=== PATIENT | female | born 1930 | race Caucasian/White ===

== ENCOUNTER 2019-03-22 17:44 | Inpatient (IN) | payer MEDICARE ==
--- NOTE | 2019-03-22 19:21 | RAD ---
RADIOGRAPH CHEST 1 VIEW: DATE: 03/22/2019 TIME: 7:13 PM HISTORY: 88-year-old female cough COMPARISON: 06/10/2016 FINDINGS: New finding of small subtle faint patchy density overlying right upper lobe. Rest of lungs are clear. Spinal cord stimulator at T-spine. No pneumothorax or pulmonary edema. IMPRESSION: Questionable small focal right upper lobe infiltrate versus artifact. Follow-up recommended.
[2019-03-22 19:34] LABS: #Eosinphils 0.1 thou/uL (0.0-0.7); #Lymphocytes 1.1 thou/uL (1.20-3.40); #Monocytes 0.6 thou/uL (0.11-0.59); %Basophils 0.2 % (0.0-1.0); %Eosinophils 0.7 % (0.0-10.0); %Lymphocytes 12.4 % (21.0-51.0); %Monocytes 6.6 % (0.0-10.0); %Neutrophils 80.2 % (42.0-75.0); Hemoglobin 11.6 g/dL (12.0-16.0); Mean Corpuscular HGB CONC 33.6 g/dL (32.0-36.0); Mean Corpuscular Hemoglobin 33.2 pg (27.0-31.0); Mean Corpuscular Volume 98.9 fL (78.0-98.0); Mean Platelet Volume 8.4 fL (7.4-10.4); Platelet Count 183 thou/uL (130-400); RBC Distribution Width 11.2 % (11.5-14.5); Red Blood Cell (RBC) Count 3.48 mill/uL (4.20-5.40); White Blood Cell (WBC) Count 8.8 thou/uL (4.8-10.8)
[2019-03-22] MEDS ORDERED: cefTRIAXone\\ROCEPHIN 2 GM VIAL ONE (19:46)
[2019-03-22 19:54] LABS: ALT (SGPT) 11 U/L (8-55); AST (SGOT) 24 U/L (5-34); Albumin 3.9 g/dL (3.4-4.8); Alkaline Phosphatase 54 U/L (40-110); Anion Gap 13 mmol/L (10-20); BUN (Urea Nitrogen) 34 mg/dL (9.8-20.1); Bilirubin, Total 0.3 mg/dL (0.2-1.2); Calc. Creatinine Clearance 0 mL/min (70-130); Calcium 8.7 mg/dL (7.8-10.44); Carbon Dioxide 27 mmol/L (23-31); Chloride 95 mmol/L (98-107); Estimated GFR-MDRD 35; Globulin 3.4 g/dL (2.4-3.5); Glucose 110 mg/dL (83-110); Potassium 4.7 mmol/L (3.5-5.1); Protein, Total 7.3 g/dL (6.0-8.3); Sodium 130 mmol/L (136-145)
[2019-03-22] MEDS ORDERED: Acetaminophen 325 MG TAB PO PRN (20:22)
[2019-03-22] MEDS ORDERED: Azithromycin 500 MG VIAL ONE (20:23)
[2019-03-22] MEDS ORDERED: traZODone HCl 50 MG TAB PO PRN (20:50)
--- NOTE | 2019-03-22 20:50 | PDOC.EVN ---
Event Note - Event Note Event Note: [id number] HP
[2019-03-22 21:55] LABS: Actual Bicarbonate (HCO3a) 28.4 mEq/L (22-28); Base Excess (BEa) 2.6 mEq/L (-2.0 to +3.0); CO2 Tension 49.4 mmHg (35.0-45.0); Calcium, Ionized 1.12 mmol/L (1.12-1.30); Carboxyhemoglobin (COHb) 0.7 gm% (0.0-3.0); Hemoglobin (Hb) 10.1 g/dL (12.0-16.0); O2 Tension (PaO2) 255.1 mmHg (> 60.0); Potassium - ABG Lab 3.98 mmol/L (3.70-5.30); pH, Arterial 7.38 (7.35-7.45)
[2019-03-22 21:56] LABS: Puncture Site RRADIAL
[2019-03-22 23:56] VITALS: BMI 27.3
[2019-03-23] MEDS: Gabapentin 300 MG CAP PO SCH ×2 (00:45→08:42)
[2019-03-23] MEDS: Heparin 5,000 UNITS/ML VIAL SC SCH ×3 (00:45→20:26)
[2019-03-23] MEDS: Sodium Chloride 0.9% 1,000 ML IV SCH ×2 (00:58→20:23)
--- NOTE | 2019-03-23 01:13 | HP ---
CHIEF COMPLAINT: Fever, chills, and low oxygen saturation. HISTORY OF PRESENT ILLNESS: Ms. Harris is an 88-year-old female with past medical history of hypertension, chronic pain, hyperlipidemia, among others, presents to the emergency room with cough, congestion, fever, body aches, and chills since Thursday. The patient was seen at Urgent Care earlier today. Oxygen saturation was 88% on room air. The patient also was found to have fever with a temperature of 101. The patient was given Tylenol and oxygen. Workup in the emergency room, patient was found to have ? possible right upper lobe opacity/pneumonia? Septic workup done in the ED. The patient is on IV antibiotics, ceftriaxone, and azithromycin. The patient is being admitted to hospital for further management. PAST MEDICAL HISTORY: 1. Hypertension. 2. Hyperlipidemia. 3. Chronic pain. FAMILY HISTORY: Reviewed and noncontributory. HOME MEDICATIONS: Please see home medication reconciliation form for updated medications. ALLERGIES: ALLERGIC TO CHLORPROMAZINE, DILANTIN, THORAZINE, TRAMADOL. PAST SURGICAL HISTORY: 1. Laminectomy. 2. Total knee replacement. 3. Eyelid plastic surgery. 4. Sinus surgery. 5. Cataract surgery. 6. Left knee replacement. 7. Hysterectomy. 8. Pain stimulator implants in the right lower leg. REVIEW OF SYSTEMS: Review of 14 systems negative except what is mentioned in history of present illness. PHYSICAL EXAMINATION: GENERAL: The patient is awake, alert, in mild respiratory distress. VITAL SIGNS: Blood pressure 159/84, pulse is 112, respiratory rate is 17, temperature is 98.8 and earlier it was 101. HEAD AND NECK: Normocephalic, atraumatic. NECK: Supple. CHEST: Bilateral expiratory wheeze, more on the right side. ABDOMEN: Soft, nontender. Bowel sounds present. NEUROLOGIC: Awake, alert, and oriented x3. PSYCHIATRIC: Normal mood. HEART: S1, S2. Regular, tachycardic. MUSCULOSKELETAL: Low back tenderness. GENITOURINARY: No suprapubic tenderness. No flank tenderness. DIAGNOSTIC DATA: Chest x-ray shows questionable small focal right upper lobe infiltrates. WBC count is 8.8, hemoglobin 11.6, platelets 183. Sodium 132, potassium 4.7, BUN is 34, creatinine 1.4. ASSESSMENT AND PLAN: 1. Pneumonia?, community-acquired? 2. Acute hypoxic respiratory failure with oxygen saturation 88% on room air. 3. Chronic pain. 4. Hypertension. 5. Hyperlipidemia. 6. Elevated creatinine. PLAN: 1. Admit. 2. Septic workup including blood cultures. 3. Continue with IV antibiotics, ceftriaxone and azithromycin. 4. Oxygen to keep saturation more than 92%. 5. DuoNeb. 6. Reconcile home medications. 7. DVT prophylaxis with low-dose heparin/SCDs. 8. Expected length of stay, 2 midnights or more. Job ID: [id number]
[2019-03-23 04:06] LABS: #Eosinphils 0.1 thou/uL (0.0-0.7); #Lymphocytes 0.9 thou/uL (1.20-3.40); #Monocytes 0.6 thou/uL (0.11-0.59); #Neutrophils 6.6 thou/uL (1.40-6.50); %Basophils 0.4 % (0.0-1.0); %Eosinophils 1.5 % (0.0-10.0); %Lymphocytes 11.3 % (21.0-51.0); %Monocytes 6.7 % (0.0-10.0); %Neutrophils 80.1 % (42.0-75.0); Hemoglobin 11.5 g/dL (12.0-16.0); Mean Corpuscular HGB CONC 32.5 g/dL (32.0-36.0); Mean Corpuscular Hemoglobin 32.7 pg (27.0-31.0); Platelet Count 169 thou/uL (130-400); RBC Distribution Width 11.3 % (11.5-14.5); Red Blood Cell (RBC) Count 3.52 mill/uL (4.20-5.40); White Blood Cell (WBC) Count 8.2 thou/uL (4.8-10.8)
[2019-03-23 04:33] LABS: Anion Gap 12 mmol/L (10-20); BUN (Urea Nitrogen) 29 mg/dL (9.8-20.1); Calc. Creatinine Clearance 38 mL/min (70-130); Calcium 8.5 mg/dL (7.8-10.44); Carbon Dioxide 26 mmol/L (23-31); Chloride 99 mmol/L (98-107); Estimated GFR-MDRD 44; Glucose 116 mg/dL (83-110); Potassium 4.3 mmol/L (3.5-5.1); Sodium 133 mmol/L (136-145)
[2019-03-23] MEDS: Famotidine/PF 20 mg/2ml Vial SLOW IVP SCH (08:40)
[2019-03-23] MEDS ORDERED: Gabapentin 100 MG CAP PO SCH ×2 (09:00→15:00)
--- NOTE | 2019-03-23 10:31 | PDOC.HOSPP ---
- Subjective Encounter Date: 03/23/19 Encounter Time: 10:29 Subjective: Ms. Harris was seen today in follow-up of pneumonia with respiratory failure. She is a bit confused. She notes some pain in her legs, but otherwise ok. - Objective Vital Signs & Weight: Vital Signs (12 hours) Temp Pulse Resp Pulse Ox 03/23/19 08:00 97 03/23/19 07:14 99.2 F 03/23/19 04:17 99 03/23/19 04:00 99.9 F H 03/22/19 23:30 100 03/22/19 22:55 98.9 F 74 17 100 Weight Weight 159 lb Most Recent Monitor Data Heart Rate from ECG 90 NIBP 172/81 NIBP BP-Mean 111 Respiration from ECG 19 SpO2 95 I&O: 03/22/19 03/23/19 03/24/19 06:59 06:59 06:59 Intake Total 330 Balance 330 Result Diagrams: 03/23/19 03:37 03/23/19 03:37 Hospitalist ROS - Medication Medications: Active Medications Generic Name Dose Route Start Last Admin Trade Name Freq PRN Reason Stop Dose Admin Acetaminophen 650 mg 03/22/19 20:22 03/23/19 08:42 Tylenol PO 650 mg Q4H PRN Administration Headache/Fever/Mild Pain (1-3) Famotidine 20 mg 03/23/19 09:00 03/23/19 08:40 Pepcid SLOW IVP 20 mg QAM FRAN Administration Heparin Sodium (Porcine) 5,000 units 03/22/19 21:00 03/23/19 08:41 Heparin SC 5,000 units BID FRAN Administration Sodium Chloride 1,000 mls @ 50 mls/hr 03/22/19 21:00 03/23/19 00:58 Normal Saline 0.9% IV 1,000 mls .Q20H FRAN Administration Sodium Chloride 10 ml 03/22/19 21:00 03/23/19 08:41 Flush - Normal Saline IVF Not Given Q12HR FRAN - Exam Eye: PERRL Heart: RRR, no murmur, no gallops, no rubs, normal peripheral pulses Respiratory: CTAB (With rales in the upper lung vizcarra), no wheezes, no ronchi Gastrointestinal: soft, non-tender, non-distended, normal bowel sounds, no palpable masses, no hepatomegaly Extremities: no cyanosis, no clubbing, no edema Hosp A/P (1) Pneumonia Code(s): J18.9 - PNEUMONIA, UNSPECIFIED ORGANISM Status: Acute (2) Diabetes mellitus type 2 in nonobese Code(s): E11.9 - TYPE 2 DIABETES MELLITUS WITHOUT COMPLICATIONS Status: Chronic (3) CKD (chronic kidney disease), stage III Code(s): N18.3 - CHRONIC KIDNEY DISEASE, STAGE 3 (MODERATE) Status: Chronic (4) Chronic pain syndrome Code(s): G89.4 - CHRONIC PAIN SYNDROME Status: Chronic (5) HTN (hypertension) Code(s): I10 - ESSENTIAL (PRIMARY) HYPERTENSION Status: Chronic - Plan * Pneumonia- continue Azithromycin and Rocephin * Chronic leg pain- her daughter is at bedside and tells me she sees Dr. 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
[2019-03-23] MEDS ORDERED: hydrALAZINE 25 MG TAB PO PRN (10:34)
[2019-03-23] MEDS ORDERED: Morphine ER 15 MG TAB PO SCH ×2 (11:00→21:00)
[2019-03-23] MEDS: Polyethylene Glycol OPTH DROP 15 ML BOT EA EYE SCH ×3 (14:30→20:53)
--- NOTE | 2019-03-23 18:28 | CON ---
DATE OF CONSULTATION: 03/23/2019 SERVICE: Pulmonary Medicine. REASON FOR CONSULTATION: Pneumonia. 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 Either way, she was in her usual state of health when she started having fevers and chills and a low oxygen saturation. She was brought to the emergency department, where a chest x -ray was suggestive of the right upper lobe infiltrate. She denies any fevers or chills, nausea, or vomiting. She was started on appropriate antibiotics yesterday, she has had a significant improvement in end-organ damage, and inflammatory profile. She is clear of infection. During the course of the day, she got some medications that were home medicines for her but caused sedation. She took a very long nap and when she woke up from it, she was in a confused state. Apparently, she has been in the hospital in 3 or 4 separate occasions and each time, she has an episode of delirium that results in an extensive neurologic workup that essentially is unremarkable. PAST MEDICAL HISTORY: 1. Hypertension. 2. Dyslipidemia. 3. Chronic pain. 4. History of obstructive sleep apnea, status post surgical procedure with abandonment of noninvasive therapy. PAST SURGICAL HISTORY: 1. Laminectomy. 2. Total knee replacement. 3. Eyelid plastic surgery. 4. Sinus surgery. 5. Cataract surgery. 6. Left knee replacement. 7. Hysterectomy. 8. Pain stimulator implants in the right lower leg. FAMILY HISTORY: Noncontributory. SOCIAL HISTORY: Negative for alcohol, tobacco, or illicit drug use. She is on multiple medications for chronic pain syndromes. ALLERGIES: CHLORPROMAZINE, DILANTIN, THORAZINE, AND TRAMADOL. MEDICATIONS: List of her medications was reviewed. No specific updates were made at this time. REVIEW OF SYSTEMS: General, head, ears, eyes, nose, throat, cardiovascular, respiratory, GI, , musculoskeletal, neurologic, and skin are negative except as mentioned in the HPI. PHYSICAL EXAMINATION: VITAL SIGNS: Afebrile currently, T-max 99.9, pulse 91, blood pressure 178/88, respirations 35, saturation 98%, currently on 2 L nasal cannula. HEENT: Normocephalic and atraumatic. Sclerae white. Conjunctivae pink. Oral mucosa is moist without lesions. LUNGS: Decent air entry. No prolonged expiratory phase or wheezing is appreciated. Minimal rhonchi are present. With a small cough, she can clear it. HEART: Normal rate. Regular. ABDOMEN: Soft, nontender, and nondistended. Bowel sounds are positive. MUSCULOSKELETAL: No cyanosis or clubbing. There is no pitting in the bilateral lower extremities. NEUROLOGIC: Grossly nonfocal. She is moving upper and lower extremities. She demonstrates symmetric strength and reflexes. She is able to understand what I say and follow some simple commands. She can repeat my speech and make spontaneous words which are audible. She is a little bit sleepy and without stimulation, she drifts back off to sleep. I am witnessing some minimal obstructive events at bedside. LABORATORY DATA: WBC 10.2, hemoglobin 11.5, and platelets 169,000 and gently downtrending. PH 7.34, pCO2 of 49, pO2 of 255. Creatinine 1.16. Basic metabolic profile is otherwise unremarkable. Lactate 1.6. Liver function studies are unremarkable. Blood cultures x2, influenza are negative. IMAGING STUDIES: Chest x-ray demonstrates small infiltrate in the right upper lobe. ASSESSMENT: 1. Acute hypoxic respiratory failure. 2. Community-acquired pneumonia, likely secondary to polypharmacy and overdose. 3. Metabolic encephalopathy, secondary to polypharmacy. 4. Acute delirium. DISCUSSION AND PLAN: Antibiotic selection is appropriate. She can be transitioned to the floor. For the delirium, we will try to minimize to distraction. We will hold all medications that are centrally acting for sedation. I agree with gentle IV fluids. She will require a repeat chest x-ray in 4 to 6 weeks in the outpatient setting to verify the right upper lobe infiltrate has resolved. Please call with additional questions or concerns through time. 70 minutes have been devoted to this patient in various activities. I personally reviewed all imaging studies and laboratory data noted within this document. For fifty percent of this time, I was interacting with the patient at the bedside or coordinating care with the care team. For the remainder of the time I was immediately available to the patient in the hospital unit. Job ID: [id number] MTDD
[2019-03-23] MEDS: cefTRIAXone\\ROCEPHIN 1 GM in Sodium Chloride 0.9% 100 ML IVPB SCH (20:24)
[2019-03-23] MEDS: Atorvastatin Calcium 10 MG TAB PO SCH (20:25)
[2019-03-23] MEDS: Gabapentin 100 MG CAP PO SCH (20:26)
[2019-03-23] MEDS: Azithromycin 500 MG in Sodium Chloride 0.9% 250 ML 250 ML IVPB SCH (20:26)
[2019-03-23] MEDS: Morphine ER 15 MG TAB PO SCH (20:27)
[2019-03-23] MEDS: traZODone HCl 50 MG TAB PO SCH (20:28)
[2019-03-24] MEDS: Levothyroxine Sodium 125 MCG TAB PO SCH (05:52)
[2019-03-24 06:42] LABS: Anion Gap 14 mmol/L (10-20); BUN (Urea Nitrogen) 19 mg/dL (9.8-20.1); Calc. Creatinine Clearance 49 mL/min (70-130); Calcium 8.2 mg/dL (7.8-10.44); Carbon Dioxide 25 mmol/L (23-31); Chloride 103 mmol/L (98-107); Estimated GFR-MDRD 58; Glucose 84 mg/dL (83-110); Sodium 138 mmol/L (136-145)
[2019-03-24] MEDS: Morphine ER 15 MG TAB PO SCH ×2 (08:43→20:12)
[2019-03-24] MEDS: Heparin 5,000 UNITS/ML VIAL SC SCH ×2 (08:44→20:13)
[2019-03-24] MEDS: Famotidine/PF 20 mg/2ml Vial SLOW IVP SCH (08:44)
[2019-03-24] MEDS: Aspirin 81 mg Enteric Coated Tablet PO SCH (08:44)
[2019-03-24] MEDS: Fish Oil 1,000 MG CAP PO SCH (08:44)
[2019-03-24] MEDS: Gabapentin 100 MG CAP PO SCH ×3 (08:44→20:12)
[2019-03-24] MEDS: Amlodipine 10 MG TAB PO SCH (08:44)
[2019-03-24] MEDS: Atenolol 25 MG TAB PO SCH (08:44)
[2019-03-24] MEDS: Polyethylene Glycol 3350 17 GM Packet PO SCH (08:45)
[2019-03-24] MEDS: Polyethylene Glycol OPTH DROP 15 ML BOT EA EYE SCH ×4 (08:45→20:13)
--- NOTE | 2019-03-24 11:27 | PDOC.HOSPP ---
- Subjective Encounter Date: 03/24/19 Encounter Time: 11:25 Subjective: Ms. Harris was seen today in follow-up of pneumonia. She continues to have some cough, but she says she feels better, no complaints. Her daughter is at the bedside and is concerned about her strength, and ability to manage at home. She is also concern about her mother developing heel ulcers. - Objective Vital Signs & Weight: Vital Signs (12 hours) Temp Pulse Resp BP Pulse Ox 03/24/19 08:15 98.4 F 83 20 176/93 H 99 03/24/19 03:33 97.8 F 90 16 156/76 H 95 Weight Weight 159 lb Most Recent Monitor Data Heart Rate from ECG 77 NIBP 140/79 NIBP BP-Mean 99 Respiration from ECG 25 SpO2 96 I&O: 03/23/19 03/24/19 03/25/19 06:59 06:59 06:59 Intake Total 330 Balance 330 Result Diagrams: 03/23/19 03:37 03/24/19 05:46 Hospitalist ROS - Medication Medications: Active Medications Generic Name Dose Route Start Last Admin Trade Name Freq PRN Reason Stop Dose Admin Acetaminophen 650 mg 03/22/19 20:22 03/23/19 08:42 Tylenol PO 650 mg Q4H PRN Administration Headache/Fever/Mild Pain (1-3) Amlodipine Besylate 10 mg 03/24/19 09:00 03/24/19 08:44 Norvasc PO 10 mg DAILY FRAN Administration Aspirin 81 mg 03/24/19 09:00 03/24/19 08:44 Ecotrin PO 81 mg DAILY FRAN Administration Atenolol 25 mg 03/24/19 09:00 03/24/19 08:44 Tenormin PO 25 mg DAILY FRAN Administration Atorvastatin Calcium 10 mg 03/23/19 21:00 03/23/19 20:25 Lipitor PO 10 mg HS FRAN Administration Famotidine 20 mg 03/23/19 09:00 03/24/19 08:44 Pepcid SLOW IVP 20 mg QAM FRAN Administration Fish Oil 1,000 mg 03/24/19 09:00 03/24/19 08:44 Fish Oil PO 1,000 mg DAILY FRAN Administration Gabapentin 200 mg 03/23/19 21:00 03/24/19 08:44 Neurontin PO 200 mg TID FRAN Administration Heparin Sodium (Porcine) 5,000 units 03/22/19 21:00 03/24/19 08:44 Heparin SC 5,000 units BID FRAN Administration Azithromycin 500 mg/ Sodium 250 mls @ 250 mls/hr 03/23/19 21:00 03/23/19 20: 26 Chloride IVPB 250 mls Q24HR FRAN Administration Ceftriaxone Sodium 1 gm/ 100 mls @ 200 mls/hr 03/23/19 20:00 03/23/19 20:24 Sodium Chloride IVPB 100 mls Q24HR FRAN Administration Sodium Chloride 1,000 mls @ 50 mls/hr 03/22/19 21:00 03/23/19 20:23 Normal Saline 0.9% IV 1,000 mls .Q20H FRAN Administration Levothyroxine Sodium 125 mcg 03/24/19 06:00 03/24/19 05:52 Synthroid PO 125 mcg 0600 FRAN Administration Morphine Sulfate 15 mg 03/23/19 21:00 03/24/19 08:43 Ms Contin PO 15 mg Q12HR FRAN Administration Polyethylene Glycol 17 gm 03/24/19 09:00 03/24/19 08:45 Miralax PO 17 gm DAILY FRAN Administration Propylene Glycol 0 drop 03/23/19 13:00 03/24/19 08:45 Systane Opth Drop 15ml Bot EA EYE 1 drop QID FRAN Administration Sodium Chloride 10 ml 03/22/19 21:00 03/24/19 08:45 Flush - Normal Saline IVF Not Given Q12HR FRAN Trazodone HCl 50 mg 03/23/19 21:00 03/23/19 20:28 Desyrel PO 50 mg HS FRAN Administration - Exam Eye: PERRL Heart: RRR, no gallops, no rubs, normal peripheral pulses, murmur present, II/IV Respiratory: rales, rhonchi (+ bilateral rhonchi and rales, improved from yesterday) Gastrointestinal: soft, non-tender, non-distended, normal bowel sounds, no palpable masses, no hepatomegaly Extremities: no cyanosis, 1+ LE edema (trace pedal edema in both lower extremities) Hosp A/P (1) Pneumonia Code(s): J18.9 - PNEUMONIA, UNSPECIFIED ORGANISM Status: Acute (2) Diabetes mellitus type 2 in nonobese Code(s): E11.9 - TYPE 2 DIABETES MELLITUS WITHOUT COMPLICATIONS Status: Chronic (3) CKD (chronic kidney disease), stage III Code(s): N18.3 - CHRONIC KIDNEY DISEASE, STAGE 3 (MODERATE) Status: Chronic (4) Chronic pain syndrome Code(s): G89.4 - CHRONIC PAIN SYNDROME Status: Chronic (5) HTN (hypertension) Code(s): I10 - ESSENTIAL (PRIMARY) HYPERTENSION Status: Chronic - Plan * Pneumonia- clinically improved- but on exam she still has some congestion- continue Azithromycin and Rocephin * Chronic leg pain- stable * Mild Demntia-stable * HTN- blood pressure is a bit elevated- continue Amlodipine, and PRN Hydralazine * Will evaluate for Rehab
--- NOTE | 2019-03-24 12:47 | PRG ---
DATE OF SERVICE: 03/24/2019 SERVICE: Pulmonary Medicine. INTERVAL HISTORY: The patient is doing really well from respiratory standpoint. Breathing comfortably. No complaints of chest discomfort, nausea, or vomiting. Otherwise, she is pleasantly demented. She has no complaints, and there were no overnight events. PHYSICAL EXAMINATION: VITAL SIGNS: Afebrile. Pulse 83, blood pressure 176/93, respirations 20, and saturation 99% on 2 L nasal cannula. I have discontinued the oxygen and watched her for 10 minutes. Her oxygen saturations were maintained at 96%. HEENT: Normocephalic, atraumatic. Sclerae white. Conjunctivae pink. Oral mucosa is moist without lesions. LUNGS: Decent air entry. No prolonged expiratory phase or wheezing is appreciated. Extensive rhonchi are present. She cannot clear them with cough. HEART: Normal rate, regular. ABDOMEN: Soft, nontender, nondistended. Bowel sounds are positive. MUSCULOSKELETAL: No cyanosis or clubbing. No pitting in the bilateral lower extremities. NEUROLOGIC: Grossly nonfocal. LABORATORY DATA: Basic metabolic profile is completely unremarkable with a creatinine that is gently downtrending to 0.91. Blood cultures x2 and influenza are unremarkable. ASSESSMENT: 1. Acute hypoxic respiratory failure. 2. Community-acquired pneumonia, likely secondary to aspiration, secondary to polypharmacy. 3. Metabolic encephalopathy, secondary to polypharmacy. 4. Dehydration, resolved. 5. Acute kidney injury, resolved. 6. Acute delirium, resolved. DISCUSSION AND PLAN: From a lung standpoint, she is back to baseline. She will require a repeat chest x-ray in 4 to 6 weeks in the outpatient setting. At this point, she has no further requirements for inpatient Pulmonary Critical Care opinion, and I will sign off. Please call with additional questions or concerns through time. Job ID: [id number]
[2019-03-24] MEDS: Sodium Chloride 0.9% 1,000 ML IV SCH (16:21)
--- NOTE | 2019-03-24 19:35 | PQF ---
DAJA NULL TONI MD [id number] CLINICAL DOCUMENTATION IMPROVEMENT CLARIFICATION FORM: ICD-10 Updated PLEASE DO AN ADDENDUM TO THE PROGRESS NOTE WITH ANY DOCUMENTATION UPDATES OR ADDITIONS AND CARRY THROUGH TO DC SUMMARY. THANK YOU. DATE: 03/24/18 ATTN: Dr. Whitfield Please exercise your independent, professional judgment in responding to the clarification form. Clinical indicators are provided on the bottom of this form for your review Please check appropriate box(s): [ X] Hyponatremia please specify etiology, if known ___Volume depletion [ ] Hyponatremia due to SIADH (Syndrome of Inappropriate Secretion of Antidiuretic Hormone) [ ] Other diagnosis [ ] Unable to determine In addition, please specify: Present on Admission (POA): [ ] Yes [ ] No [ ] Unable to determine CLINICAL INDICATORS - SIGNS / SYMPTOMS / LABS / RESULTS AND LOCATION IN EMR Na level (Please cite specific Na level.)--> 03/22/19 NA 130, 03/23/19 NA 133; 03/24 NA 138 per labs RISK FACTORS / RESULTS AND LOCATION IN EMR 03/24/19 Bradin: "Acute kidney injury, resolved" TREATMENTS / RESULTS AND LOCATION IN EMR IV fluids--> NS at 50 03/22-date per orders Daily of electrolyte labs 03/22 to date per orders (This form is maintained as a part of the permanent medical record) 2014 [email or web address] All Rights Reserved Avani Diaz RN, BSN, CCDS [email or web address] [phone] [email or web address]
[2019-03-24] MEDS: Atorvastatin Calcium 10 MG TAB PO SCH (20:11)
[2019-03-24] MEDS: cefTRIAXone\\ROCEPHIN 1 GM in Sodium Chloride 0.9% 100 ML IVPB SCH (20:11)
[2019-03-24] MEDS: traZODone HCl 50 MG TAB PO SCH (20:13)
[2019-03-24] MEDS: Azithromycin 500 MG in Sodium Chloride 0.9% 250 ML 250 ML IVPB SCH (21:22)
[2019-03-25] MEDS: Levothyroxine Sodium 125 MCG TAB PO SCH (05:08)
[2019-03-25] MEDS: Atenolol 25 MG TAB PO SCH (08:36)
[2019-03-25] MEDS: Amlodipine 10 MG TAB PO SCH (08:36)
[2019-03-25] MEDS: Aspirin 81 mg Enteric Coated Tablet PO SCH (08:36)
[2019-03-25] MEDS: Morphine ER 15 MG TAB PO SCH (08:37)
[2019-03-25] MEDS: Polyethylene Glycol 3350 17 GM Packet PO SCH ×2 (08:37→08:38)
[2019-03-25] MEDS: Fish Oil 1,000 MG CAP PO SCH (08:37)
[2019-03-25] MEDS: Gabapentin 100 MG CAP PO SCH ×2 (08:37→14:13)
[2019-03-25] MEDS: Polyethylene Glycol OPTH DROP 15 ML BOT EA EYE SCH ×3 (08:38→16:37)
[2019-03-25] MEDS: Heparin 5,000 UNITS/ML VIAL SC SCH (08:38)
[2019-03-25] MEDS: Famotidine/PF 20 mg/2ml Vial SLOW IVP SCH (08:38)
[2019-03-25] MEDS: Sodium Chloride 0.9% 1,000 ML IV SCH (09:23)
[2019-03-25 09:40] LABS: #Eosinphils 0.3 thou/uL (0.0-0.7); #Lymphocytes 1.1 thou/uL (1.20-3.40); #Monocytes 0.5 thou/uL (0.11-0.59); #Neutrophils 3.6 thou/uL (1.40-6.50); %Basophils 0.2 % (0.0-1.0); %Eosinophils 5.8 % (0.0-10.0); %Lymphocytes 20.5 % (21.0-51.0); %Monocytes 8.1 % (0.0-10.0); %Neutrophils 65.4 % (42.0-75.0); Hemoglobin 10.6 g/dL (12.0-16.0); Mean Corpuscular HGB CONC 32.9 g/dL (32.0-36.0); Mean Corpuscular Hemoglobin 32.3 pg (27.0-31.0); Mean Corpuscular Volume 98.2 fL (78.0-98.0); Mean Platelet Volume 7.7 fL (7.4-10.4); Platelet Count 193 thou/uL (130-400); RBC Distribution Width 11.2 % (11.5-14.5); Red Blood Cell (RBC) Count 3.28 mill/uL (4.20-5.40); White Blood Cell (WBC) Count 5.5 thou/uL (4.8-10.8)
[2019-03-25 09:50] LABS: Anion Gap 14 mmol/L (10-20); BUN (Urea Nitrogen) 16 mg/dL (9.8-20.1); Calc. Creatinine Clearance 47 mL/min (70-130); Calcium 8.9 mg/dL (7.8-10.44); Carbon Dioxide 26 mmol/L (23-31); Chloride 101 mmol/L (98-107); Estimated GFR-MDRD 56; Glucose 151 mg/dL (83-110); Potassium 3.6 mmol/L (3.5-5.1); Sodium 137 mmol/L (136-145)
--- NOTE | 2019-03-25 12:29 | PDOC.HOSPP ---
- Subjective Encounter Date: 03/25/19 Encounter Time: 12:26 Subjective: Ms. Harris was seen today in follow-up of Pneumonia. She feels better, no new complaints. She ambulated without much difficulty. - Objective Vital Signs & Weight: Vital Signs (12 hours) Temp Pulse Resp BP BP Pulse Ox 03/25/19 10:47 98.7 F 88 20 165/80 H 90 L 03/25/19 08:36 88 03/25/19 08:00 90 L 03/25/19 07:40 98.7 F 88 20 170/76 H 90 L 03/25/19 04:04 166/76 H 03/25/19 03:05 98.2 F 88 18 96 Weight Weight 159 lb Most Recent Monitor Data Heart Rate from ECG 77 NIBP 140/79 NIBP BP-Mean 99 Respiration from ECG 25 SpO2 96 I&O: 03/24/19 03/25/19 03/26/19 06:59 06:59 06:59 Intake Total 1920 Output Total 1400 Balance 520 Result Diagrams: 03/25/19 09:12 03/25/19 09:12 Hospitalist ROS - Medication Medications: Active Medications Generic Name Dose Route Start Last Admin Trade Name Freq PRN Reason Stop Dose Admin Acetaminophen 650 mg 03/22/19 20:22 03/23/19 08:42 Tylenol PO 650 mg Q4H PRN Administration Headache/Fever/Mild Pain (1-3) Amlodipine Besylate 10 mg 03/24/19 09:00 03/25/19 08:36 Norvasc PO 10 mg DAILY FRAN Administration Aspirin 81 mg 03/24/19 09:00 03/25/19 08:36 Ecotrin PO 81 mg DAILY FRAN Administration Atenolol 25 mg 03/24/19 09:00 03/25/19 08:36 Tenormin PO 25 mg DAILY FRAN Administration Atorvastatin Calcium 10 mg 03/23/19 21:00 03/24/19 20:11 Lipitor PO 10 mg HS FRAN Administration Famotidine 20 mg 03/23/19 09:00 03/25/19 08:38 Pepcid SLOW IVP 20 mg QAM FRAN Administration Fish Oil 1,000 mg 03/24/19 09:00 03/25/19 08:37 Fish Oil PO 1,000 mg DAILY FRAN Administration Gabapentin 200 mg 03/23/19 21:00 03/25/19 08:37 Neurontin PO 200 mg TID FRAN Administration Heparin Sodium (Porcine) 5,000 units 03/22/19 21:00 03/25/19 08:38 Heparin SC 5,000 units BID FRAN Administration Azithromycin 500 mg/ Sodium 250 mls @ 250 mls/hr 03/23/19 21:00 03/24/19 21: 22 Chloride IVPB 250 mls Q24HR FRAN Administration Ceftriaxone Sodium 1 gm/ 100 mls @ 200 mls/hr 03/23/19 20:00 03/24/19 20:11 Sodium Chloride IVPB 100 mls Q24HR FRAN Administration Sodium Chloride 1,000 mls @ 50 mls/hr 03/22/19 21:00 03/25/19 09:23 Normal Saline 0.9% IV Not Given .Q20H FRAN Levothyroxine Sodium 125 mcg 03/24/19 06:00 03/25/19 05:08 Synthroid PO 125 mcg 0600 FRAN Administration Morphine Sulfate 15 mg 03/23/19 21:00 03/25/19 08:37 Ms Contin PO 15 mg Q12HR FRAN Administration Polyethylene Glycol 17 gm 03/24/19 09:00 03/25/19 08:38 Miralax PO 17 gm DAILY FRAN Administration Propylene Glycol 0 drop 03/23/19 13:00 03/25/19 08:38 Systane Opth Drop 15ml Bot EA EYE 1 drop QID FRAN Administration Sodium Chloride 10 ml 03/22/19 21:00 03/25/19 08:39 Flush - Normal Saline IVF Not Given Q12HR FRAN Trazodone HCl 50 mg 03/23/19 21:00 03/24/19 20:13 Desyrel PO 50 mg HS FRAN Administration - Exam Eye: PERRL Heart: RRR, no murmur, no gallops, no rubs, normal peripheral pulses Respiratory: CTAB (+ rales at the bases, no wheezing or rhonchi) Gastrointestinal: soft, non-tender, non-distended, normal bowel sounds, no palpable masses, no hepatomegaly Extremities: no cyanosis Hosp A/P (1) Pneumonia Code(s): J18.9 - PNEUMONIA, UNSPECIFIED ORGANISM Status: Acute (2) Diabetes mellitus type 2 in nonobese Code(s): E11.9 - TYPE 2 DIABETES MELLITUS WITHOUT COMPLICATIONS Status: Chronic (3) CKD (chronic kidney disease), stage III Code(s): N18.3 - CHRONIC KIDNEY DISEASE, STAGE 3 (MODERATE) Status: Chronic (4) Chronic pain syndrome Code(s): G89.4 - CHRONIC PAIN SYNDROME Status: Chronic (5) HTN (hypertension) Code(s): I10 - ESSENTIAL (PRIMARY) HYPERTENSION Status: Chronic (6) Hyponatremia Code(s): E87.1 - HYPO-OSMOLALITY AND HYPONATREMIA Status: Resolved - Plan * Pneumonia- improving- will change * Chronic leg pain- stable * Mild Demntia-stable * HTN- blood pressure is a bit elevated- continue Amlodipine, and PRN Hydralazine * Hyponatremia- due to volume depletion- resolved * Will evaluate for Rehab
[2019-03-25 15:39] VITALS: BP 181/94; TEMP 98
--- NOTE | 2019-03-25 18:09 | DIS ---
DATE OF ADMISSION: 03/22/2019 DATE OF DISCHARGE: 03/25/2019 DISCHARGE DISPOSITION: Home with Home Health. DISCHARGE DIAGNOSES: 1. Acute respiratory failure with hypoxemia. 2. Pneumonia, community acquired. 3. Hypertension. 4. Hyperlipidemia. 5. Mild dementia. DISCHARGE MEDICATIONS: Include; 1. Iron sulfate 325 mg p.o. daily. 2. Omnicef 300 mg twice a day. 3. Aspirin 81 mg daily. 4. Amlodipine 10 mg daily. 5. Trazodone 50 mg at bedtime. 6. Simvastatin 20 mg at bedtime. 7. MiraLAX 17 g daily. 8. 1 tablet daily. 9. Levothyroxine 125 mcg p.o. daily. 10. Gabapentin 200 mg t.i.d. 11. Fish oil 1200 mg p.o. daily. 12. Atenolol 25 mg a day. CODE STATUS: Full code. ALLERGIES: CHLORPROMAZINE, CORTISOL, PHENYTOIN, AND TRAMADOL. HOSPITAL COURSE: Ms. Harris is a pleasant 88-year-old female, who was admitted to the hospital with cough and shortness of breath. She also had hypoxemia as well. She was found to have a right upper lobe infiltrate. She was started on IV antibiotics and placed in the IMCU. Actually overnight, she did extremely well and was able to be transferred out of the IMCU into the floor. We were also able to wean her off oxygen completely. She was generally weak initially, but after a few days of treatment, was back to her baseline status and her daughter was at the bedside to verify this and was able to be discharged back home in improved condition to continue a course of Omnicef and then follow up with her primary care physician in approximately 1 week. Job ID: [id number]
--- NOTE | 2019-03-28 08:54 | PQF ---
DJAA NULL TONI MD [id number] [facility] A [id number] CLINICAL DOCUMENTATION CLARIFICATION FORM: POST DISCHARGE Addendum to original discharge summary date: ____ Late entry note date: __ DATE: 03/28/2019 ATTN: ANNAMARIE TURNER MD Please exercise your independent, professional judgment in responding to the clarification form. Clinical indicators are provided on the bottom of this form for your review Please check appropriate box(s): [ ] Aspiration Pneumonia [ X ] Pneumonia, community acquired [ ] Pneumonia of unknown etiology [ ] Other diagnosis [ ] Unable to determine For continuity of documentation, please document condition throughout progress notes and discharge summary. Thank You. CLINICAL INDICATORS - SIGNS / SYMPTOMS / LABS - Pneumonia, community acquired- DS, 03/25, ANNAMARIE TURNER MD - Community acquired pneumonia, likely sec to aspiration, sec to polypharmacy- Progress note, 03/24, Chester Antony MD - Decent air entry-extensive rhonchi are present- Progress note, 03/24, Chester Antony MD - Community acquired pneumonia, likely sec to aspiration, sec to polypharmacy and overdose- Consultation, 03/24, Chester Antony MD - right upper lobe infiltrate has resolved-Consultation, 03/24, Chester Antony MD RISK FACTORS - Acute respiratory falure with hypoxia- DS, 03/25, ANNAMARIE TURNER MD - polypharmacy and overdose- Consultation, 03/24, Chester Antony MD TREATMENTS: - [email or web address]- MAY, 03/22 (This form is maintained as a part of the permanent medical record) 2014 [employer]. All Rights Reserved Romy Rincon [not provided] [not provided] MTDD
== END 2019-03-25 17:00 | disposition home health service (06) | DRG 193 ==
LOC: ERS 17:44 → ERHOLD 20:14 → IMCU/EMU 23:33 → SURG A 03-23 18:51
PROVIDERS: ADMIT Internal Medicine; ATTEND Internal Medicine
DX: J18.9 Pneumonia, unspecified organism (principal); J96.01 Acute respiratory failure with hypoxia; G92 Toxic encephalopathy; N17.9 Acute kidney failure, unspecified; E87.1 Hypo-osmolality and hyponatremia; E78.5 Hyperlipidemia, unspecified; G89.29 Other chronic pain; I12.9 Hypertensive chronic kidney disease with stage 1 through stage 4 chronic kidney disease, or unspecified chronic kidney disease; N18.3 Chronic kidney disease, stage 3 (moderate); F03.90 Unspecified dementia, unspecified severity, without behavioral disturbance, psychotic disturbance, mood disturbance, and anxiety; Z96.653 Presence of artificial knee joint, bilateral; E86.0 Dehydration; Z98.42 Cataract extraction status, left eye; Z98.41 Cataract extraction status, right eye; Z90.710 Acquired absence of both cervix and uterus; Z88.8 Allergy status to other drugs, medicaments and biological substances
CPT/HCPCS: 36415; 71045; 80048; 80053; 82805; 83605; 85025; 87040; 87804; 93005; 94640; 96365; 96367; J0456; J0696; J1644; J3490; J7050; J7620; S0028

== ENCOUNTER 2019-11-11 09:57 | Emergency (ER) | payer MEDICARE, OTHER ==
[2019-11-11] MEDS ORDERED: cefTRIAXone\\ROCEPHIN 2 GM VIAL ONE (10:30)
[2019-11-11 10:46] LABS: Bacteria/HPF None Seen HPF (None Seen); Bilirubin Negative (Negative); Blood, Urine Trace (Negative); Clarity Clear (Clear); Glucose, Urine (Dipstick) Normal (Negative); Ketone, Urine Negative (Negative); Leukocyte Negative Leu/uL (Negative); Nitrite Negative (Negative); Protein, Urine (Dipstick) 50 mg/dL (Neg-Trace); RBC/HPF 0-3 HPF (0-3); Specific Gravity, Urine 1.024 (1.002-1.036); Squamous Epithelial None Seen HPF (0-3); Urobilinogen Normal mg/dL (Less than 2); WBC/HPF 0-3 HPF (0-3)
[2019-11-11 11:14] LABS: #Eosinphils 0.5 thou/uL (0.0-0.7); #Lymphocytes 1.7 thou/uL (1.20-3.40); #Monocytes 0.6 thou/uL (0.11-0.59); #Neutrophils 5.4 thou/uL (1.40-6.50); %Basophils 0.1 % (0.0-1.0); %Eosinophils 5.8 % (0.0-10.0); %Lymphocytes 20.2 % (21.0-51.0); %Monocytes 7.4 % (0.0-10.0); %Neutrophils 66.5 % (42.0-75.0); Hemoglobin 13.1 g/dL (12.0-16.0); Mean Corpuscular HGB CONC 32.4 g/dL (32.0-36.0); Mean Corpuscular Hemoglobin 32.4 pg (27.0-31.0); Mean Platelet Volume 8.4 fL (7.4-10.4); Platelet Count 163 thou/uL (130-400); RBC Distribution Width 11.9 % (11.5-14.5); Red Blood Cell (RBC) Count 4.04 mill/uL (4.20-5.40); White Blood Cell (WBC) Count 8.2 thou/uL (4.8-10.8)
--- NOTE | 2019-11-11 11:23 | RAD ---
Chest one view HISTORY: Weakness. Altered mental status. COMPARISON: 03/22/2019. FINDINGS: Cardiac silhouette is magnified by projection. Pulmonary vasculature is unremarkable. Mediastinum is midline with aortic calcification and metallic dorsal column stimulator leads. Retroca rdiac density is stable with the appearance of a hiatal hernia. No lobar consolidation or evidence of pneumothorax. Degenerative changes of the shoulders. IMPRESSION : Atherosclerosis. Hiatal hernia. Chronic-type findings are stable. No active cardiopulmonary abnormalities are demonstrated.
[2019-11-11 12:06] LABS: CKMB 6.4 ng/mL (0-6.6)
[2019-11-11 12:23] LABS: ALT (SGPT) 15 U/L (8-55); AST (SGOT) 34 U/L (5-34); Albumin 4.3 g/dL (3.4-4.8); Alkaline Phosphatase 49 U/L (40-110); Anion Gap 18 mmol/L (10-20); BUN (Urea Nitrogen) 48 mg/dL (9.8-20.1); Bilirubin, Total 0.5 mg/dL (0.2-1.2); Calc. Creatinine Clearance 0 mL/min (70-130); Calcium 9.1 mg/dL (7.8-10.44); Carbon Dioxide 26 mmol/L (23-31); Chloride 98 mmol/L (98-107); Estimated GFR-MDRD 32; Globulin 3.3 g/dL (2.4-3.5); Glucose 113 mg/dL (83-110); Lipase 29 U/L (8-78); Potassium 4.9 mmol/L (3.5-5.1); Protein, Total 7.6 g/dL (6.0-8.3); Sodium 137 mmol/L (136-145)
== END 2019-11-11 14:00 | disposition home or self-care (01) ==
LOC: ERS 09:57
DX: M62.81 Muscle weakness (generalized) (principal); E78.5 Hyperlipidemia, unspecified; E78.00 Pure hypercholesterolemia, unspecified; I10 Essential (primary) hypertension; Z79.899 Other long term (current) drug therapy; Z79.891 Long term (current) use of opiate analgesic
CPT/HCPCS: 51701; 71045; 80053; 81003; 81015; 82553; 83605; 83690; 84484; 85025; 87040; 87086; 93005; 96365; J0696